=== PATIENT | male | born 1975 | race Caucasian/White ===

== ENCOUNTER 2021-02-07 07:01 | Outpatient (CLI) | payer OTHER ==
--- NOTE | 2021-02-07 08:55 | MRI Report ---
PROCEDURE: Knee LT W/O INDICATIONS: KNEE PAIN TECHNIQUE: Noncontrast sagittal PD fast spin echo and T2 fast spin echo with fat saturation, sagittal 3-D gradie nt sequence with fat saturation; coronal T1 spin echo and PD fast spin echo with fat saturation, and axial PD fast spin echo with fat saturation through the knee. COMPARISON: None. FINDINGS: Image quality: Diagnostic. Menisci: The medial and lateral menisci demonstrate normal morphology and internal signal. The meni scal root ligaments appear intact. Cruciate ligaments: The anterior and posterior cruciate ligaments appear intact. Medial structures: The medial collateral ligament appears intact. The semimembranosus tendon insert ions appear intact. Visualized portions of the pes anserinus tendons appear normal. No abnormal bur sruthi fluid. Lateral structures: The fibular collateral ligament and biceps femoris tendon appear intact. There i s mild edema along the lateral collateral ligament distally which may represent sequelae of mild spra in. The popliteal tendon and the meniscofemoral ligaments appear intact. Anterior structures: The quadriceps and patellar tendons appear intact with mild tendinopathy in the distal quadriceps tendon and proximal patellar tendon. Patellar alignment is normal. No femoral tr ochlear dysplasia or ventral trochlear prominence. No edema in the infrapatellar fat pad. There is m ild prepatellar edema. Bones and cartilage: No bone marrow contusions or fractures. The cartilage of the medial and latera l femorotibial compartments, as well as the patellofemoral compartment, appears preserved in overall thickness. There is mild superficial chondral fissuring along the trochlear groove. Mild superficial chondral fraying also demonstrated in the medial compartment. Joint space: There is physiologic knee joint fluid. No Godoy?s cyst. Normal appearing synovial pli are incidentally noted. IMPRESSION: 1. Mild edema along the lateral collateral ligament complex distally may reflect sequelae of a mild s prain. 2. Mild tendinopathy of the distal quadriceps and proximal patellar tendons. 3. Mild prepatellar edema without a discrete bursal fluid collection. 4. Minimal chondral degeneration. Reviewed by: Bolivar Shepard MD on 02/07/2021 8:53 AM PDT Approved by: Bolivar Shepard MD on 02/07/2021 8:53 AM PDT Station ID: [id number]
--- NOTE | 2021-02-07 10:13 | MRI Report ---
PROCEDURE: Lumbar Spine W/O INDICATIONS: KNEE PAIN, LOW BACK PAIN TECHNIQUE: Noncontrast sagittal T1 spin echo and T2 fast echo, sagittal STIR, axial T1 and T2 fast spin echo thr ough the lumbar spine. In cases with scoliosis, additional coronal T2 fast spin echo may be performe d. COMPARISON: None. FINDINGS: Image quality: Excellent. Alignment and Curvature: Lumbar vertebral body height and alignment. Bone Marrow: Marrow is of normal overall signal. No marrow edema or suspicious ligamentous abnormali ty. There is a T1/T2 hyperintense benign hemangioma in the L1 vertebral body measuring 6 mm. Spinal Cord: Conus medullaris terminates at the normal level. Visualized cord demonstrates normal s ignal and size. Regional Soft Tissues: Prevertebral and paraspinal soft tissues are unremarkable T12-L1: No spinal canal or neural foraminal stenosis. No significant degenerative changes. L1-L2: No spinal canal or neural foraminal stenosis. No significant degenerative changes. L2-L3: Diffuse disc bulge flattens the ventral thecal sac. Disc material abuts but does not appear to displace the descending L3 nerve roots within the subarticular zones. No neural foraminal stenosis. L3-L4: No spinal canal or neural foraminal stenosis. No significant degenerative changes. L4-L5: No spinal canal or neural foraminal stenosis. No significant degenerative changes. L5-S1: Disc desiccation and height loss. Circumferential disc bulge mildly displaces the descending r ight greater than left S1 nerve roots. No neural foraminal stenosis. IMPRESSION: Mild degenerative changes at L2-L3 and L5-S1 without definite evidence of focal nerve ro ot impingement although there is mild displacement of the descending right greater than left S1 nerve roots at the L5-S1 level. Correlate for corresponding ureters Reviewed by: Donald Hickman MD on 02/07/2021 10:12 AM PDT Approved by: Donald Hickman MD on 02/07/2021 10:12 AM PDT Station ID: [id number]
== END 2021-02-07 07:02 | disposition home or self-care (01) ==
LOC: DI 07:01
PROVIDERS: ATTEND Family Medicine
DX: M54.5 Low back pain (principal); M47.817 Spondylosis without myelopathy or radiculopathy, lumbosacral region; M25.562 Pain in left knee; M25.561 Pain in right knee; M25.462 Effusion, left knee; M67.864 Other specified disorders of tendon, left knee

== ENCOUNTER 2021-05-31 07:58 | Outpatient (CLI) | payer OTHER ==
[2021-05-31 09:11] VITALS: BP 138/77
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
== END 2021-05-31 07:59 | disposition home or self-care (01) ==
LOC: SC 07:58
PROVIDERS: ATTEND Nurse Practitioner Family
DX: R06.83 Snoring (principal); R06.81 Apnea, not elsewhere classified; R51.9 Headache, unspecified; G47.8 Other sleep disorders; R41.89 Other symptoms and signs involving cognitive functions and awareness; G47.10 Hypersomnia, unspecified; E66.9 Obesity, unspecified; Z68.31 Body mass index [BMI] 31.0-31.9, adult
CPT/HCPCS: 99203; 99212

== ENCOUNTER 2021-06-06 12:20 | Outpatient (CLI) | payer OTHER | END 2021-06-06 12:21 | disposition home or self-care (01) | LOC: SC 12:20 | PROVIDERS: ATTEND Nurse Practitioner Family | DX: G47.33 Obstructive sleep apnea (adult) (pediatric) (principal) | CPT/HCPCS: 95806 ==

== ENCOUNTER 2021-06-20 10:15 | Outpatient (CLI) | payer OTHER ==
[2021-06-20 10:52] VITALS: BP 134/91
--- NOTE | 2021-06-20 10:52 | SLEEP CARE CONSULTATION ---
Information from patient questionnaire entered by Velia Weston MA. I have reviewed and concur with the information entered by Velia Weston MA. This document represents the service I personally performed and the decisions made by , Allie Batista ARNP. History of Present Illness Service Date and Time: 06/20/2021 1015 Initial [place] Sleepiness Scale score: 12 (2020) Current [place] Sleepiness Scale score: 18 (2020) Additional HPI information: MIC WOLF returns for follow up and results of the recently performed home sleep study. I explained the pathophysiology behind obstructive sleep apnea. We then spent quite a bit of time discussing different treatment options. For mild obstructive sleep apnea, surgery and oral appliance are alternatives to nasal CPAP therapy but in moderate or severe cases, nasal CPAP is the most effective and reliable treatment. Because apnea is primarily in supine position, then positional management therapy could be effective. Methods discussed such as positioning with pillows, using a T-shirt with tennis balls in the back, and shown commercial products that have a pillow format on back to prevent supine sleep. I reviewed the impact of weight changes on sleep apnea and strongly recommended losing weight. After some discussion, the patient opted to go with the nasal CPAP therapy. Nasal autoCPAP set at 4-15 cmH20 will be ordered with rationale explained. A manual titration study will be ordered if unable to find optimal pressure with office adjustments. I explained how CPAP machine works with sample devices Respironics Dreamstation and ResManpacks [id number] and what to expect when using the machine. Using CPAP every night in order to get used to it was emphasized. Patient advised to put CPAP mask on before getting into bed so as not to fall asleep without CPAP. To assist acclimation to CPAP use, it could also be used for a short time during day while reading or watching TV. The patient was instructed to call the CPAP supplier to discuss any mechanical problem that may occur. If the mask given is uncomfortable or is difficult to keep on through the night even with adjustment, contact the CPAP supplier as many will replace with another mask style if notifi ed before 30 days. If snoring or perceives is not getting enough air or too much air from the machine, notify this office. [facility] patient education PAP tips reviewed and given to patient. Patient counseled not drink alcohol less than 4 hours before bedtime as it can increase snoring and apnea. Patient was cautioned about risks of drowsy driving until sleepiness symptoms resolve. Sleep Study - Results Polysomnography/Home Sleep Study results: Physician Impression: The quality of the study is good. The length of the study is adequate (> 240 minutes). Please also see the tabulated and graphic data. 1. Obstructive Sleep Apnea-Hypopnea (ICD-10 G47.33), mild, with an AHI of 7.2/hr and hitesh SaO2 of 90%. During the study, the patient had 26 apneas (26 obstructive, 0 central, 0 mixed) and 11 hypopneas. The longest episode lasted 81.5 seconds. The respiratory events occurred independently of body position (supine AHI was 6.2 and non-supine, 9.05). Allergies and Home Medications Known drug allergies: No Home medication list reviewed: Yes Allergy and home medication list: Sildenafil 100 mg Hydroxyzine Hydrochlorothiazide Citalopram 40 mg Tamsulosin 0.4 mg Review of Systems Review of systems same as previous: No (knee injections bilaterally for pain) Physical Exam Vital signs obtained and entered by: SHANE ALLEN Blood Pressure: 134/91 (right, just started BP meds) Cuff size: wrist Heart Rate: 70 O2 Saturation: 99 (mask) Height: 5 ft 10 in Weight: 208 lb Body Mass Index: 29.8 BMI Classification: Overweight Impression and Plan 1. Obstructive Sleep Apnea-Hypopnea Syndrome, mild, with lowest oxygen saturation of 90%. Obviously this is the cause of the patients symptoms of unrefreshed sleep, and excessive daytime sleepiness. Positive pressure therapy could benefit hypertension, anxiety and gastric reflux. As mentioned above, the patient will be started on nasal autoCPAP therapy with pressure set at 4-15 cmH2 O. A manual titration study will be completed if unable to find optimal treatment pressure with office adjustments. Compliance guidelines also reviewed. A copy of compliance guidelines will be given for reference at check out. * Nasal auto CPAP therapy, pressure at 4-15 cm H2O. * Attempt to lose weight. * Avoid alcohol consumption near bedtime. * Avoid supine sleep until using CPAP. * The patient is again cautioned about driving until sleepiness completely resolves. * Return one month after CPAP obtained. I will assess response to therapy and compliance at that time. Counseling Topics: Weight loss health impact Visit Type: In Office Time Spent with Patient (minutes): 25 Provider Statement: I spent 100% of the Face to Face Visit with the patient with greater than 50% spent counseling the patient and coordination of care.
== END 2021-06-20 10:16 | disposition home or self-care (01) ==
LOC: SC 10:15
PROVIDERS: ATTEND Nurse Practitioner Family
DX: G47.33 Obstructive sleep apnea (adult) (pediatric) (principal)
CPT/HCPCS: 99212; 99213

== ENCOUNTER 2021-12-08 09:23 | Outpatient (CLI) | payer OTHER ==
[2021-12-08 10:18] VITALS: BP 131/73
--- NOTE | 2021-12-08 10:18 | SLEEP CARE CONSULTATION ---
Information from patient questionnaire entered by Velia Weston MA. I have reviewed and concur with the information entered by Velia Weston MA. This document represents the service I personally performed and the decisions made by , Allie Batista ARNP. History of Present Illness Service Date and Time: 12/08/2021 0923 Previous diagnosis: Mild, Obstructive Sleep Apnea-Hypopnea Syndrome AHI: 7.2 (in 2020) Reason for follow up: first compliance (SET UP 10/16/2021, [facility], FAXED OVER COMP, ) Equipment type: CPAP Equipment obtained from: Other ([employer]; got initial supplies) Mask style: Nasal Mask brand: Resmed (AirFit [id number]) Backup mask available: No (will keep old mask when replaced) Last cushion change: 1 month Prior sleep studies: No HPI additional information: MIC WOLF was diagnosed to have mild, AHI 7.2, obstructive sleep apnea- hypopnea syndrome and returned today for CPAP therapy first compliance ([facility]) follow-up. Sleep Study - Results Prior sleep studies: No CPAP Compliance Data - Data Reviewed with Patient Average duration of nightly device use: 6.9 Compliance rate %: 87 (11/01 - 11/30/2021) Current pressure setting (cmH2O): 5-15 (median 3.6, avg 7.0, max 9.8) Average residual AHI: 2.4 Central apnea: 0 Obstructive apnea: 1.7 Subjective Patient concerns: reports: dry mouth, nose, throat (nose dryness, improved with increasing humidity), other (NOT WAKING UP AT NIGHT, NOT WAKING UP TIRED. ). denies: aerophagia, mask discomfort, air blowing in eyes, mask leak noise, condensation in mask/hose, nasal congestion, epistaxis Observed to snore while using device: No Current pressure setting perceived as: comfortable On therapy, patient: reports: sleeping better, awakening more refreshed, being more awake and alert during the day, more rested overall. denies: drowsiness while driving Initial [place] Sleepiness Scale score: 12 (2020) Current [place] Sleepiness Scale score: 1 (11/2021) Allergies and Home Medications Home medication list reviewed: Yes (HCTZ, Celexa; only meds being taken) Review of Systems Review of systems same as previous: Yes (no changes) Physical Exam Vital signs obtained and entered by: Maira WESTON CMA AAMA Blood Pressure: 131/73 (PULSE 64, RESP 18, RIGHT,) Heart Rate: 64 O2 Saturation: 98 Height: 5 ft 10 in Weight: 208 lb (uniform and boots) Weight change since last visit: EATING LESS, WORKING OUT , LOST 20 LBS. Body Mass Index: 29.8 BMI Classification: Overweight Impression and Plan 1. Obstructive Sleep Apnea-Hypopnea Syndrome, mild, with good treatment compliance and good apnea control. On CPAP therapy, the patient has better sleep quality and is more rested overall. The patients pressure will be changed to autoCPAP 6-10 cmH20 to reflect pressure being used. Patient advised to contact me if pressure change is uncomfortable so that it can be adjusted. 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 Patient's apnea severity and rationale for treatment to reduce apnea, improve sleep quality and reduce cardiovascular and cerebrovascular events was reviewed. I also reviewed the benefit of consistent device use of CPAP for hypertension, gastric reflux and anxiety. 2. Overweight, unspecified. His BMI is 29.8. He has lost about 20 lbs, per patient. He is having more energy and working out 3 days a week now. He is very happy with weight loss. * Change auto CPAP pressure to 6-10 cmH2O * Notify me if snoring with mask or feeling that the pressure is too much or too little * Continue to try to lose weight * Call this office if any problems using CPAP * Return for follow up in 1-2 months, or sooner if concerns arise Counseling Topics: Spare mask, Weight loss health impact Visit Type: In Office Time Spent with Patient (minutes): 20 Provider Statement: I spent 100% of the Face to Face Visit with the patient with greater than 50% spent counseling the patient and coordination of care.
== END 2021-12-08 09:24 | disposition home or self-care (01) ==
LOC: SC 09:23
PROVIDERS: ATTEND Nurse Practitioner Family
DX: G47.33 Obstructive sleep apnea (adult) (pediatric) (principal); E66.3 Overweight; Z68.29 Body mass index [BMI] 29.0-29.9, adult
CPT/HCPCS: 99212; 99213